=== PATIENT | female | born 1960 | race American Indian/Alaskan Native ===

== ENCOUNTER 2016-10-07 12:57 | Emergency (ER) | payer BC ==
[2016-10-07 13:39] VITALS: BP 147/89
--- NOTE | 2016-10-07 17:02 | Emergency Department Report ---
Entered by JOYCELYN SARMIENTO, acting as scribe for ANGELA GALAVIZ PA. ED Back Pain/Injury HPI - General Chief Complaint: Extremity Injury, Lower Stated Complaint: LEFT LEG PAIN Time Seen by Provider: 10/07/16 16:20 Source: patient Mode of arrival: Ambulatory Limitations: No Limitations - History of Present Illness Initial Comments: 55 y/o female with no significant PMHx, presents to the ED c/o left leg pain beginning 2 weeks ago. The patient states that the current symptoms are consistent with prior sciatica flareups. The left leg pain radiates down to the left thigh and the left buttock. Associated symptom of left leg numbness, but she denies weakness, headache, chest pain, nausea, vomiting, abdominal pain, SOB , and fever. The patient has been taking advil with mild alleviation of the symptoms and using a heating pad on the affected area. MD Complaint: back pain (consistent with prior sciatica) -: week(s) (2 weeks ago) Similar Symptoms Previously: Yes (current symptoms are consistent with prior sciatica flareups) Place: home Radiation: buttocks (left), left leg Severity: moderate Quality: stabbing Consistency: constant Improves With: none Worsens With: none, other (patient notes the symptoms become worse at night) Context: other (patient has Hx of sciatica) Associated Symptoms: numbness. denies: chest pain, cough, fever/chills, abdominal pain, nausea/vomiting, shortness of breath - Related Data Home Medications Medication Instructions Recorded Confirmed Last Taken Albuterol *Only Ed* [Proventil 07/27/13 07/27/13 Unknown 0.5% NEBS] Budesoni/Formotero 160-4.5(Nf) 07/27/13 07/27/13 Unknown [Symbicort 160-4.5] Previous Rx's Medication Instructions Recorded Last Taken Type Acetaminophen/Codeine [Tylenol #3] 1 tab PO Q6H PRN #20 tab 10/07/16 Unknown Rx Allergies Allergy/AdvReac Type Severity Reaction Status Date / Time ibuprofen [From Motrin] Allergy Hives Verified 10/07/16 13:32 ED Review of Systems Comment: All other systems reviewed and negative Constitutional: denies: chills, fever Respiratory: denies: cough, shortness of breath Cardiovascular: denies: chest pain Gastrointestinal: denies: abdominal pain, nausea, vomiting, other (incontinence) Musculoskeletal: other (left leg pain radiating down to the left thigh and the left buttock) Skin: denies: rash Neurological: numbness (of the left leg). denies: headache, weakness ED Past Medical Hx - Past Medical History Hx GERD: Yes Hx Asthma: Yes Additional medical history: GLAUCOMA. SCIATICA - Surgical History Hx Appendectomy: Yes Additional Surgical History: right ankle. tubal ligation. hysterectomy - Social History Smoking Status: Former Smoker Substance Use Type: Alcohol - Medications Home Medications: Home Medications Medication Instructions Recorded Confirmed Last Taken Type Albuterol *Only Ed* [Proventil 07/27/13 07/27/13 Unknown History 0.5% NEBS] Budesoni/Formotero 160-4.5(Nf) 07/27/13 07/27/13 Unknown History [Symbicort 160-4.5] Acetaminophen/Codeine [Tylenol #3] 1 tab PO Q6H PRN #20 tab 10/07/16 Unknown Rx ED Physical Exam - General Limitations: No Limitations - Back Exam Back exam: Present: normal inspection, full ROM, tenderness (sacral notch tenderness), other (positive SLR of the left leg at 30 degrees, SLR of the right leg does not illicit pain) - Other Other exam information: GENERAL: Patient is alert and oriented x 3. No apparent distress, normal gait, atraumatic. HEAD: Head is normocephalic and atraumatic. EYES: Extraocular movements are intact. Pupils are equal, round, and reactive to light and accommodation. EARS: Symmetrical, atraumatic, non tender, ear canal clear with moderate cerumen , tympanic membrane non inflamed. Gross auditory nml bilaterally. NOSE: Nose symmetrical, nontender. Nares appeared normal. MOUTH:Mouth is well hydrated and without lesions. Mucous membranes are moist. Uvula midline. Tongue not elevated. Posterior pharynx clear, no exudate or lesions. Tonsils are not erythematous or swollen. Patent airway. NECK: Supple. Non edematous, no carotid bruits. No lymphadenopathy or thyromegaly. LUNGS: Symmetrical with respiration. No wheezing, rales or crackles, CTAB. HEART: Regular rate and rhythm with normal S1/S2 present. No murmurs, rubs, or gallops. ABDOMEN: Soft, nondistended. Nontender to palpation on all quadrants. No organomegaly was noted. Positive bowel sounds. No CVA tenderness. EXTREMITIES/MUSCULOSKELETAL: No cyanosis, clubbing, rash, lesions or edema. Full ROM bilaterally. UE/LE Pulses 2+ bilaterally. LE and UE 5+ strength bilaterally. Noted there is no left hip tenderness or swelling. SKIN: Warm and dry. No lesions, ulceration or induration present NEUROLOGIC: No focal deficit. ED Course Vital Signs 10/07/16 13:30 Temperature 97.5 F L Pulse Rate 66 Respiratory 17 Rate Blood Pressure 147/89 O2 Sat by Pulse 100 Oximetry ED Medical Decision Making - Medical Decision Making Patient was evaluated by the provider in fast track. 55 y/o female patient presents to the ED c/o left leg pain that radiates to the left thigh and left buttock. The patient states the symptoms are consistent with prior sciatica flareups. Patient is sent home with tylenol #3. Patient states she has Prednisone at home already, and that she drove to the ED today. The patient was told to follow up with a PCP as referred, and to return to the ED if her symptoms return or worsen. Patient states understanding and will follow instructions. Vital signs stable, patient is in no acute distress. ED Disposition Clinical Impression: Back pain with left-sided sciatica Disposition: DISCHARGED TO HOME OR SELFCARE Is pt being admited?: No Does the pt Need Aspirin: No Condition: Stable Instructions: Sciatica (ED), Lumbar Radiculopathy (ED) Additional Instructions: Recommended to follow up with orthopedic. Take medication as prescribed. Prescriptions: Acetaminophen/Codeine [Tylenol #3] 1 tab PO Q6H PRN #20 tab PRN Reason: Pain Referrals: SHARON BATISTA MD [Primary Care Provider] - 3-5 Days MILKA NYE MD [Staff Physician] - 3-5 Days Forms: Work/School Release Form(ED) This documentation as recorded by the GUILLERMINA sheffield GRACE,accurately reflects the service I personally performed and the decisions made by ,ANGELA GALAVIZ PA.
== END 2016-10-07 17:07 | disposition home or self-care (01) ==
LOC: ED 12:57
DX: M54.32 Sciatica, left side (principal); M79.605 Pain in left leg; K21.9 Gastro-esophageal reflux disease without esophagitis; J45.909 Unspecified asthma, uncomplicated; H40.9 Unspecified glaucoma; Z87.891 Personal history of nicotine dependence; Z88.6 Allergy status to analgesic agent
CPT/HCPCS: 99282

== ENCOUNTER 2016-10-14 19:25 | Emergency (ER) | payer BC ==
[2016-10-14 20:19] VITALS: BP 143/92
[2016-10-14 23:09] LABS: Basophils % (Auto) 0.2 % (0.0-1.8); Hematocrit 38.7 % (30.3-42.9); Hemoglobin 12.8 gm/dl (10.1-14.3); Mean Corpuscular HGB Conc 33 % (30-34); Mean Corpuscular Hemoglobin 34 pg (28-32); Mean Corpuscular Volume 101 fl (79-97); Platelet Count 142 K/mm3 (140-440); Red Blood Count 3.82 M/mm3 (3.65-5.03); Red Cell Distribution Width 14.7 % (13.2-15.2)
[2016-10-14 23:28] LABS: Anion Gap 21 mmol/L; Blood Urea Nitrogen 10 mg/dL (7-17); Calcium 9.8 mg/dL (8.4-10.2); Carbon Dioxide 22 mmol/L (22-30); Chloride 101.1 mmol/L (98-107); Glucose 91 mg/dL (65-100); Sodium 140 mmol/L (137-145)
--- NOTE | 2016-10-16 13:34 | ED Elopement Review ---
ED Pt Elopement review - Results review Lab results: Laboratory Tests 10/14/16 10/14/16 20:36 20:36 WBC 11.0 RBC 3.82 Hgb 12.8 Hct 38.7 MCV 101 H MCH 34 H MCHC 33 RDW 14.7 Plt Count 142 Lymph % (Auto) 8.5 L Davis % (Auto) 4.3 Eos % (Auto) 0.0 Baso % (Auto) 0.2 Lymph # 0.9 L Davis # 0.5 Eos # 0.0 Baso # 0.0 Seg Neutrophils % 87.0 H Seg Neutrophils # 9.5 H Sodium 140 Potassium 4.0 Chloride 101.1 Carbon Dioxide 22 Anion Gap 21 BUN 10 Creatinine 0.8 Estimated GFR > 60 BUN/Creatinine Ratio 12.50 Glucose 91 Calcium 9.8 Troponin T < 0.010 - Call Back decision Pt Call Back Decision: No action required
== END 2016-10-14 21:43 | disposition left against medical advice (07) ==
LOC: ED 19:25
DX: R07.9 Chest pain, unspecified (principal); Z53.21 Procedure and treatment not carried out due to patient leaving prior to being seen by health care provider
CPT/HCPCS: 36415; 80048; 84484; 85025; 93005; 93010